=== PATIENT | female | born 1940 | race Caucasian/White ===

== ENCOUNTER 2016-11-11 17:30 | Inpatient (IN) | payer MEDICARE, OTHER ==
[~2016-11-11] VITALS: Ht 160 cm; Wt 66.3 kg
[2016-11-11] MEDS ORDERED: SODIUM CHLORIDE 0.9% 1,000 ML IV ONE (18:13)
[2016-11-11] MEDS ORDERED: ALBUTEROL/IPRATROPIUM 2.5MG/0.5MG, 3 ML ONE ×2 (18:28→21:27)
[2016-11-11] MEDS ORDERED: ALBUTEROL/IPRATROPIUM 2.5MG/0.5MG, 3 ML NPPB ONE (18:30)
[2016-11-11] MEDS ORDERED: SODIUM CHLORIDE FLUSH 10ML SYR IVF ONE (18:30)
[2016-11-11 18:42] LABS: BLOOD UREA NITROGEN 11 mg/dL (7-18)
[2016-11-11] MEDS ORDERED: VENL100T PO (18:51)
[2016-11-11] MEDS ORDERED: PRIM50TA PO (18:51)
[2016-11-11] MEDS ORDERED: DONE5TAB14 PO (18:51)
[2016-11-11] MEDS ORDERED: CLON-364 PO (18:51)
[2016-11-11] MEDS ORDERED: LIDO700A5 TD (18:51)
[2016-11-11] MEDS ORDERED: TRAZ150T68 PO (18:51)
[2016-11-11] MEDS ORDERED: ALBU1.25 NEB (18:51)
[2016-11-11] MEDS ORDERED: HYDR1TAB16 PO (18:51)
[2016-11-11] MEDS ORDERED: RISP0.253 PO (18:51)
[2016-11-11] MEDS ORDERED: PRAV40TA2 PO (18:51)
[2016-11-11] MEDS ORDERED: POTA10CA PO (18:51)
[2016-11-11] MEDS ORDERED: OMEP-110 PO (18:51)
[2016-11-11] MEDS ORDERED: DILT60CA PO (18:51)
[2016-11-11] MEDS ORDERED: FURO80TA3 PO (18:51)
[2016-11-11] MEDS ORDERED: FLUT1DIS3 INH (18:51)
[2016-11-11] MEDS ORDERED: PLEASE ENTER ALLERGIES MC SCH ×2 (19:58)
[2016-11-11] MEDS ORDERED: methylPREDNISolone SOD SUCC 125 MG/2 ML IVP ONE (21:00)
[2016-11-11] MEDS ORDERED: methylPREDNISolone SOD SUCC 125 MG/2 ML ONE (21:12)
[2016-11-11] MEDS ORDERED: ALBUTEROL SULFATE 2.5 MG/3 ML NPPB ONE (21:30)
[2016-11-11] MEDS ORDERED: SODIUM CHLORIDE FLUSH 10ML SYR IVF PRN (22:00)
[2016-11-11] MEDS ORDERED: GUAIFENESIN/DM 200-20MG, 10ML UDC PO PRN (22:00)
[2016-11-11] MEDS ORDERED: ONDANSETRON ODT 4 MG PO PRN (22:00)
[2016-11-11] MEDS ORDERED: ENALAPRILAT 1.25 MG/ML, 2ML IVPush PRN (22:00)
[2016-11-11] MEDS ORDERED: BISACODYL 10 MG SUPP PR PRN (22:00)
[2016-11-11] MEDS ORDERED: POLYETHYLENE GLYCOL 17 GM PACKET PO PRN (22:00)
[2016-11-11] MEDS ORDERED: DOCUSATE 100 MG CAPSULE PO PRN (22:00)
[2016-11-11 22:46] VITALS: BP 118/68
[2016-11-11] MEDS: AZITHROMYCIN 500 MG in SODIUM CHLORIDE 0.9% 250 ML IV SCH (23:45)
[2016-11-11] MEDS: DILTIAZEM 30 MG TABLET PO SCH (23:45)
[2016-11-11] MEDS: TRAZODONE 50MG TABLET PO PRN (23:45)
[2016-11-11] MEDS: methylPREDNISolone SOD SUCC 125 MG/2 ML IVPush SCH (23:46)
[2016-11-11] MEDS: ENOXAPARIN 40 MG/0.4 ML SQ SCH (23:46)
[2016-11-12] MEDS: ALBUTEROL/IPRATROPIUM 2.5MG/0.5MG, 3 ML NPPB PRN (01:26)
[2016-11-12 01:37] VITALS: BP 111/68
[2016-11-12] MEDS: methylPREDNISolone SOD SUCC 125 MG/2 ML IVPush SCH (04:48)
[2016-11-12 05:58] LABS: ASPARTATE AMINO TRANSFERASE 22 U/L (15-37); BLOOD UREA NITROGEN 10 mg/dL (7-18)
[2016-11-12] MEDS: HYDROcodone/APAP 10/325 MG TABLET PO PRN ×3 (06:00→19:58)
[2016-11-12] MEDS: ALBUTEROL/IPRATROPIUM 2.5MG/0.5MG, 3 ML NPPB SCH ×6 (06:07→23:45)
[2016-11-12 07:50] VITALS: BP 92/46
[2016-11-12 07:56] VITALS: BP 169/86
[2016-11-12] MEDS: VENLAFAXINE 75MG TABLET PO SCH (09:26)
[2016-11-12] MEDS: DILTIAZEM 30 MG TABLET PO SCH ×3 (09:26→19:57)
[2016-11-12] MEDS: PRIMIDONE 50 MG TABLET PO SCH ×2 (09:27→19:58)
[2016-11-12] MEDS: RISPERIDONE 0.5 MG TABLET PO SCH ×2 (09:27→19:57)
[2016-11-12] MEDS: OMEPRAZOLE 20 MG CAPSULE.DR PO SCH ×2 (09:27→19:57)
[2016-11-12] MEDS: FUROSEMIDE 80 MG TABLET PO SCH (09:28)
[2016-11-12] MEDS: DONEPEZIL 5 MG TABLET PO SCH (09:28)
[2016-11-12 14:12] VITALS: BP 132/74
[2016-11-12 19:51] VITALS: BP 117/72
[2016-11-12] MEDS: TRAZODONE 50MG TABLET PO PRN (19:57)
[2016-11-12] MEDS ORDERED: ACETAMINOPHEN 325 MG TABLET PO ONE (20:30)
[2016-11-12] MEDS ORDERED: PRAVASTATIN 40 MG TABLET PO SCH (21:00)
[2016-11-12] MEDS ORDERED: CALCIUM CARBONATE 500 MG TAB.CHEW PO SCH (21:00)
[2016-11-13] MEDS: AZITHROMYCIN 500 MG in SODIUM CHLORIDE 0.9% 250 ML IV SCH ×2 (00:01)
[2016-11-13] MEDS: ENOXAPARIN 40 MG/0.4 ML SQ SCH ×2 (00:02)
[2016-11-13] MEDS ORDERED: CALCIUM CARBONATE 500 MG TAB.CHEW PO PRN (01:00)
[2016-11-13 01:52] VITALS: BP 106/62
[2016-11-13] MEDS: ALBUTEROL/IPRATROPIUM 2.5MG/0.5MG, 3 ML NPPB PRN (01:58)
[2016-11-13] MEDS: ALBUTEROL/IPRATROPIUM 2.5MG/0.5MG, 3 ML NPPB SCH ×4 (07:40→18:00)
[2016-11-13 08:10] VITALS: BP 121/67
[2016-11-13] MEDS: DILTIAZEM 30 MG TABLET PO SCH ×2 (08:14→17:26)
[2016-11-13] MEDS: OMEPRAZOLE 20 MG CAPSULE.DR PO SCH (08:14)
[2016-11-13] MEDS: FUROSEMIDE 80 MG TABLET PO SCH (08:14)
[2016-11-13] MEDS: RISPERIDONE 0.5 MG TABLET PO SCH (08:14)
[2016-11-13] MEDS: VENLAFAXINE 75MG TABLET PO SCH (08:15)
[2016-11-13] MEDS: DONEPEZIL 5 MG TABLET PO SCH (08:15)
[2016-11-13] MEDS: PRIMIDONE 50 MG TABLET PO SCH (08:16)
[2016-11-13] MEDS ORDERED: PRED20TA PO (13:39)
[2016-11-13] MEDS: HYDROcodone/APAP 10/325 MG TABLET PO PRN (14:17)
== END 2016-11-13 18:15 | disposition home or self-care (01) | DRG 189 ==
LOC: ED 21:00 → EDIP 21:39 → 3NW 22:19
PROVIDERS: ADMIT Internal Medicine; ATTEND Internal Medicine
DX: J96.01 Acute respiratory failure with hypoxia (principal); J44.1 Chronic obstructive pulmonary disease with (acute) exacerbation; I50.32 Chronic diastolic (congestive) heart failure; E87.1 Hypo-osmolality and hyponatremia; K44.9 Diaphragmatic hernia without obstruction or gangrene; E88.09 Other disorders of plasma-protein metabolism, not elsewhere classified; F32.9 Major depressive disorder, single episode, unspecified; G31.84 Mild cognitive impairment of uncertain or unknown etiology; I25.10 Atherosclerotic heart disease of native coronary artery without angina pectoris; G89.29 Other chronic pain; M54.9 Dorsalgia, unspecified; M25.559 Pain in unspecified hip; K21.9 Gastro-esophageal reflux disease without esophagitis; Z80.0 Family history of malignant neoplasm of digestive organs; Z87.01 Personal history of pneumonia (recurrent); Z83.3 Family history of diabetes mellitus; Z87.891 Personal history of nicotine dependence; Z95.5 Presence of coronary angioplasty implant and graft; Z90.710 Acquired absence of both cervix and uterus; Z98.51 Tubal ligation status; Z88.8 Allergy status to other drugs, medicaments and biological substances; Z79.899 Other long term (current) drug therapy; Z99.81 Dependence on supplemental oxygen
CPT/HCPCS: 36415; 71010; 80048; 80053; 82040; 83605; 83735; 84439; 84443; 85025; 93005; 94640; 96374; 96375; J0456; J1650; J7620; J2930; J7030; J7050; J7512

== ENCOUNTER 2017-07-20 01:53 | Inpatient (IN) | payer MEDICARE, OTHER ==
[~2017-07-20] VITALS: Ht 160 cm; Wt 67.0 kg
[~2017-07-20 01:53] MED LIST: ALBU1.25 NEB; CLON-364 PO; DILT60CA PO; DONE5TAB14 PO; FLUT1DIS3 INH; FURO80TA3 PO; HYDR1TAB16 PO; LIDO700A5 TD; OMEP-110 PO; POTA10CA PO; PRAV40TA2 PO; PRED20TA PO; PRIM50TA PO; RISP0.253 PO; TRAZ150T62 PO; VENL100T PO
[2017-07-20] MEDS ORDERED: SPIR25TA3 PO (02:26)
[2017-07-20] MEDS ORDERED: MELO7.5T31 PO (02:26)
[2017-07-20] MEDS ORDERED: THEO400T2 PO (02:26)
[2017-07-20] MEDS ORDERED: MORP-52 PO (02:26)
[2017-07-20 02:46] LABS: RAPID INFLUENZA A Negative (Negative); RAPID INFLUENZA B Negative (Negative)
[2017-07-20 02:55] LABS: BASOPHILS # (AUTO) 0.01 x10^3/uL (0-0.1); BASOPHILS % (AUTO) 0 % (0-1); EOSINOPHILS # (AUTO) 0.05 x10^3/uL (0-0.4); EOSINOPHILS % (AUTO) 1 % (1-7); LYMPHOCYTES # (AUTO) 0.65 x10^3/uL (1-3.4); LYMPHOCYTES % (AUTO) 8 % (22-44); MD NO; MEAN CORPUSCULAR HEMOGLOBIN 26.1 pg (27.0-34.8); MEAN CORPUSCULAR HGB CONC 31.9 g/dL (32.4-35.8); MEAN CORPUSCULAR VOLUME 81.8 fL (80-100); MONOCYTES # (AUTO) 0.56 x10^3/uL (0.2-0.8); MONOCYTES % (AUTO) 7 % (2-9); NEUTROPHILS # (AUTO) 7.18 x10^3/uL (1.8-6.8); NEUTROPHILS % (AUTO) 85 % (42-75); PLATELET COUNT 246 x10^3/uL (130-400); RED CELL DISTRIBUTION WIDTH 17.2 % (9.6-15.2)
[2017-07-20 03:08] LABS: ANION GAP 6 mmol/L (5-15); CALCIUM 8.8 mg/dL (8.5-10.1); CHLORIDE 104 mmol/L (98-107)
[2017-07-20 03:13] LABS: BILIRUBIN,TOTAL 0.3 mg/dL (0.2-1.0); CREATININE 0.68 mg/dL (0.55-1.02)
[2017-07-20 03:14] LABS: ALANINE AMINOTRANSFERASE 92 U/L (12-78); ALKALINE PHOSPHATASE 188 U/L (45-117)
[2017-07-20 03:24] LABS: TROPONIN I 0.401 ng/mL (0.000-0.045)
[2017-07-20] MEDS ORDERED: ASPIRIN 81 MG TABLET CHEW ONE (03:33)
[2017-07-20] MEDS ORDERED: ASPIRIN 81 MG TABLET CHEW PO ONE (04:00)
[2017-07-20] MEDS ORDERED: MORPHINE SULFATE 4 MG/ML, 1ML IVPush PRN (04:00)
[2017-07-20] MEDS ORDERED: ONDANSETRON 2MG/ML, 2ML IVPush PRN ×2 (04:00→05:30)
[2017-07-20] MEDS ORDERED: ACETAMINOPHEN 325 MG TABLET ONE (04:23)
[2017-07-20] MEDS ORDERED: ACETAMINOPHEN 325 MG TABLET PO ONE (04:30)
[2017-07-20] MEDS ORDERED: SODIUM CHLORIDE 0.9% 1,000 ML IV SCH (05:29)
[2017-07-20] MEDS ORDERED: ENOXAPARIN 40 MG/0.4 ML SQ SCH (05:30)
[2017-07-20] MEDS ORDERED: GUAIFENESIN/DM 200-20MG, 10ML UDC PO PRN (05:30)
[2017-07-20] MEDS ORDERED: TEMAZEPAM 15 MG CAPSULE PO PRN (05:30)
[2017-07-20 05:35] VITALS: BP 110/65
[2017-07-20] MEDS ORDERED: ALBUTEROL/IPRATROPIUM 2.5MG/0.5MG, 3 ML NPPB PRN (07:00)
[2017-07-20 07:18] VITALS: BP 106/65
[2017-07-20] MEDS: CARVEDILOL 3.125 MG TABLET PO SCH ×2 (07:30→17:08)
[2017-07-20] MEDS: ALBUTEROL/IPRATROPIUM 2.5MG/0.5MG, 3 ML NPPB SCH ×3 (07:37→20:31)
[2017-07-20] MEDS: RISPERIDONE 0.5 MG TABLET PO SCH ×2 (09:00→20:45)
[2017-07-20] MEDS: PRIMIDONE 50 MG TABLET PO SCH ×2 (09:00→20:45)
[2017-07-20] MEDS: SODIUM CHLORIDE 0.9% 1,000 ML IV SCH (10:06)
[2017-07-20] MEDS: OMEPRAZOLE 20 MG CAPSULE.DR PO SCH ×2 (12:14→20:44)
[2017-07-20] MEDS: ACETAMINOPHEN 325 MG TABLET PO PRN ×2 (12:15→17:08)
[2017-07-20 12:42] VITALS: BP 122/71
[2017-07-20 15:39] VITALS: BP 128/67
[2017-07-20] MEDS: ASPIRIN 325 MG TABLET EC PO SCH (15:40)
[2017-07-20] MEDS: VENLAFAXINE 75 MG CAP ER PO SCH (15:41)
[2017-07-20] MEDS: ENOXAPARIN 60 MG/0.6 ML SQ SCH (15:42)
[2017-07-20 17:46] LABS: CHOL/HDL RATIO 2.1; LDL/HDL RATIO 0.9 (0.5-3.0)
[2017-07-20 18:42] VITALS: BP 123/72
[2017-07-20] MEDS: TRAZODONE 100MG TABLET PO SCH (20:44)
[2017-07-20] MEDS: PRAVASTATIN 40 MG TABLET PO SCH (20:44)
[2017-07-20] MEDS: DONEPEZIL 5 MG TABLET PO SCH (20:44)
[2017-07-20 23:58] VITALS: BP 129/72
[2017-07-21] MEDS: SODIUM CHLORIDE 0.9% 1,000 ML IV SCH ×2 (00:05→13:24)
[2017-07-21 04:25] VITALS: BP 122/49
[2017-07-21] MEDS: ENOXAPARIN 60 MG/0.6 ML SQ SCH ×3 (04:27→23:14)
[2017-07-21] MEDS: CARVEDILOL 3.125 MG TABLET PO SCH ×2 (04:28→17:03)
[2017-07-21] MEDS: ASPIRIN 325 MG TABLET EC PO SCH (04:28)
[2017-07-21] MEDS: ACETAMINOPHEN 325 MG TABLET PO PRN ×2 (04:28→23:20)
[2017-07-21] MEDS ORDERED: SODIUM CHLORIDE 0.9% 1,000 ML IV SCH (05:29)
[2017-07-21 06:22] LABS: BASOPHILS # (AUTO) 0.03 x10^3/uL (0-0.1); BASOPHILS % (AUTO) 1 % (0-1); EOSINOPHILS % (AUTO) 0 % (1-7); LYMPHOCYTES # (AUTO) 1.48 x10^3/uL (1-3.4); LYMPHOCYTES % (AUTO) 29 % (22-44); MD NO; MEAN CORPUSCULAR HEMOGLOBIN 26.2 pg (27.0-34.8); MEAN CORPUSCULAR HGB CONC 32.1 g/dL (32.4-35.8); MEAN CORPUSCULAR VOLUME 81.5 fL (80-100); MEAN PLATELET VOLUME 9.3 fL (7.4-10.4); MONOCYTES # (AUTO) 0.73 x10^3/uL (0.2-0.8); MONOCYTES % (AUTO) 14 % (2-9); NEUTROPHILS # (AUTO) 2.86 x10^3/uL (1.8-6.8); NEUTROPHILS % (AUTO) 56 % (42-75); PLATELET COUNT 230 x10^3/uL (130-400); RED BLOOD COUNT 3.98 x10^6/uL (3.82-5.3); RED CELL DISTRIBUTION WIDTH 17.1 % (9.6-15.2)
[2017-07-21 06:31] LABS: CHLORIDE 110 mmol/L (98-107)
[2017-07-21 06:32] LABS: ANION GAP 5 mmol/L (5-15); CALCIUM 8.2 mg/dL (8.5-10.1); CREATININE 0.42 mg/dL (0.55-1.02)
[2017-07-21] MEDS: ALBUTEROL/IPRATROPIUM 2.5MG/0.5MG, 3 ML NPPB SCH ×3 (06:36→19:12)
[2017-07-21 07:43] VITALS: BP 119/72
[2017-07-21] MEDS: OMEPRAZOLE 20 MG CAPSULE.DR PO SCH ×2 (09:15→20:08)
[2017-07-21] MEDS: RISPERIDONE 0.5 MG TABLET PO SCH ×2 (09:16→20:08)
[2017-07-21] MEDS: VENLAFAXINE 75 MG CAP ER PO SCH (09:16)
[2017-07-21] MEDS: PRIMIDONE 50 MG TABLET PO SCH ×2 (09:17→20:09)
[2017-07-21] MEDS ORDERED: HYDR-3307 PO (09:40)
[2017-07-21] MEDS: LISINOPRIL 5 MG TABLET PO SCH (11:03)
[2017-07-21] MEDS: CLOPIDOGREL 75 MG TABLET PO SCH (11:03)
[2017-07-21 14:17] VITALS: BP 132/72
[2017-07-21] MEDS: HYDROcodone/APAP 10/325 MG TABLET PO PRN ×2 (14:50→20:09)
[2017-07-21] MEDS ORDERED: GUAIFENESIN 100 MG/5 ML, 10ML UDC PO PRN (17:00)
[2017-07-21 19:19] VITALS: BP 127/74
[2017-07-21] MEDS: DONEPEZIL 5 MG TABLET PO SCH (20:08)
[2017-07-21] MEDS: PRAVASTATIN 40 MG TABLET PO SCH (20:08)
[2017-07-21] MEDS: TRAZODONE 100MG TABLET PO SCH (23:14)
[2017-07-22 01:27] VITALS: BP 115/69
[2017-07-22] MEDS: SODIUM CHLORIDE 0.9% 1,000 ML IV SCH (02:40)
[2017-07-22 05:25] VITALS: BP 112/63
[2017-07-22] MEDS: ASPIRIN 325 MG TABLET EC PO SCH (05:27)
[2017-07-22] MEDS: CARVEDILOL 3.125 MG TABLET PO SCH (05:28)
[2017-07-22 05:30] LABS: BASOPHILS % (AUTO) 2 % (0-1); EOSINOPHILS # (AUTO) 0.05 x10^3/uL (0-0.4); EOSINOPHILS % (AUTO) 1 % (1-7); LYMPHOCYTES # (AUTO) 2.51 x10^3/uL (1-3.4); LYMPHOCYTES % (AUTO) 42 % (22-44); MD NO; MEAN CORPUSCULAR HGB CONC 33.1 g/dL (32.4-35.8); MEAN CORPUSCULAR VOLUME 81.7 fL (80-100); MEAN PLATELET VOLUME 9.3 fL (7.4-10.4); MONOCYTES # (AUTO) 0.59 x10^3/uL (0.2-0.8); MONOCYTES % (AUTO) 10 % (2-9); NEUTROPHILS # (AUTO) 2.77 x10^3/uL (1.8-6.8); NEUTROPHILS % (AUTO) 46 % (42-75); PLATELET COUNT 226 x10^3/uL (130-400); RED BLOOD COUNT 3.67 x10^6/uL (3.82-5.3); RED CELL DISTRIBUTION WIDTH 16.8 % (9.6-15.2)
[2017-07-22 05:41] LABS: CHLORIDE 112 mmol/L (98-107)
[2017-07-22 05:54] LABS: ALANINE AMINOTRANSFERASE 42 U/L (12-78); ALBUMIN 2.5 g/dL (3.4-5.0); ALKALINE PHOSPHATASE 116 U/L (45-117); ANION GAP 6 mmol/L (5-15); BILIRUBIN,TOTAL 0.3 mg/dL (0.2-1.0); CALCIUM 7.9 mg/dL (8.5-10.1); CREATININE 0.42 mg/dL (0.55-1.02); TOTAL PROTEIN 5.6 g/dL (6.4-8.2)
[2017-07-22] MEDS ORDERED: ALBUTEROL/IPRATROPIUM 2.5MG/0.5MG, 3 ML ONE (06:32)
[2017-07-22] MEDS: ALBUTEROL/IPRATROPIUM 2.5MG/0.5MG, 3 ML NPPB SCH ×2 (06:37→13:45)
[2017-07-22 06:59] VITALS: BP 110/68
[2017-07-22] MEDS: RISPERIDONE 0.5 MG TABLET PO SCH (08:15)
[2017-07-22] MEDS: CLOPIDOGREL 75 MG TABLET PO SCH (08:15)
[2017-07-22] MEDS: PRIMIDONE 50 MG TABLET PO SCH (08:15)
[2017-07-22] MEDS: ACETAMINOPHEN 325 MG TABLET PO PRN (08:15)
[2017-07-22] MEDS: OMEPRAZOLE 20 MG CAPSULE.DR PO SCH (08:15)
[2017-07-22] MEDS: VENLAFAXINE 75 MG CAP ER PO SCH (08:15)
[2017-07-22] MEDS: LISINOPRIL 5 MG TABLET PO SCH (08:15)
[2017-07-22] MEDS ORDERED: REGADENOSON 0.4 MG/5 ML SYRINGE ONE (08:42)
[2017-07-22] MEDS: ENOXAPARIN 60 MG/0.6 ML SQ SCH (11:04)
[2017-07-22] MEDS: HYDROcodone/APAP 10/325 MG TABLET PO PRN (11:08)
[2017-07-22 13:53] VITALS: BP 122/69
[2017-07-22] MEDS ORDERED: GUAI100L11 PO (15:16)
[2017-07-22] MEDS ORDERED: SODI44SP NAS (15:16)
[2017-07-22] MEDS ORDERED: CLOP75TA PO (15:16)
[2017-07-22] MEDS ORDERED: ASPI-621 PO (15:16)
[2017-07-22] MEDS ORDERED: PRED20TA PO (15:16)
[2017-07-22] MEDS ORDERED: FLUT16SP NAS (15:16)
[2017-07-22] MEDS ORDERED: PANT40TA3 PO (15:16)
[2017-07-22] MEDS ORDERED: CARV3.1212 PO (15:16)
[2017-07-22] MEDS ORDERED: AMOX1TAB12 PO (15:16)
[2017-07-22] MEDS ORDERED: LISI5TAB7 PO (15:16)
[2017-07-22] MEDS ORDERED: AMOXICILLIN/CLAV 875-125MG TABLET PO SCH (21:00)
[2017-07-22] MEDS ORDERED: FLUTICASONE NASAL SPRAY 16GM NAS SCH (21:00)
[2017-07-22] MEDS ORDERED: SODIUM CHLORIDE NASAL SPRAY 45ML BOTTLE NAS SCH (21:00)
[2017-07-23] MEDS ORDERED: ASPIRIN 81 MG TABLET EC PO SCH (06:00)
[2017-07-23] MEDS ORDERED: ENOXAPARIN 40 MG/0.4 ML SQ SCH (08:00)
== END 2017-07-22 16:15 | disposition home or self-care (01) | DRG 280 ==
LOC: ED 04:03 → EDIP 04:10 → 5SO 05:27 → DCLOUNGE 07-22 15:53
PROVIDERS: ADMIT Internal Medicine; ATTEND Internal Medicine
DX: I21.4 Non-ST elevation (NSTEMI) myocardial infarction (principal); J96.00 Acute respiratory failure, unspecified whether with hypoxia or hypercapnia; E44.1 Mild protein-calorie malnutrition; I50.32 Chronic diastolic (congestive) heart failure; J44.1 Chronic obstructive pulmonary disease with (acute) exacerbation; I11.0 Hypertensive heart disease with heart failure; D64.9 Anemia, unspecified; G30.9 Alzheimer's disease, unspecified; F02.80 Dementia in other diseases classified elsewhere, unspecified severity, without behavioral disturbance, psychotic disturbance, mood disturbance, and anxiety; Z66 Do not resuscitate; K21.9 Gastro-esophageal reflux disease without esophagitis; I25.10 Atherosclerotic heart disease of native coronary artery without angina pectoris; M19.90 Unspecified osteoarthritis, unspecified site; F32.9 Major depressive disorder, single episode, unspecified; Z68.26 Body mass index [BMI] 26.0-26.9, adult; Z90.710 Acquired absence of both cervix and uterus; Z87.891 Personal history of nicotine dependence; Z88.8 Allergy status to other drugs, medicaments and biological substances; Z79.899 Other long term (current) drug therapy; Z79.82 Long term (current) use of aspirin; J01.90 Acute sinusitis, unspecified
CPT/HCPCS: 36415; 71045; 78452; 80048; 80053; 80061; 83735; 83880; 84484; 85025; 87400; 93005; 93017; 93306; 94640; 99285; J1650; J2785; J7620; A9502; C9898; J7030; J7512

== ENCOUNTER 2017-12-13 03:12 | Inpatient (IN) | payer MEDICARE, OTHER ==
[~2017-12-13] VITALS: Ht 162.6 cm; Wt 61.4 kg
[~2017-12-13 03:12] MED LIST changes: +AMOX1TAB12 PO; +ASPI-621 PO; +CARV3.1212 PO; +CLOP75TA PO; +FLUT16SP NAS; +GUAI100L11 PO; +HYDR-3307 PO; +LISI5TAB7 PO; +MELO7.5T31 PO; +MORP-52 PO; +PANT40TA3 PO; +SODI44SP NAS; +SPIR25TA3 PO; +THEO400T2 PO
[2017-12-13] MEDS ORDERED: SODIUM CHLORIDE FLUSH 10ML SYR IVF ONE (03:30)
[2017-12-13 03:41] LABS: MEAN CORPUSCULAR HEMOGLOBIN 27.2 pg (27.0-34.8); MEAN CORPUSCULAR HGB CONC 32.2 g/dL (32.4-35.8); MEAN CORPUSCULAR VOLUME 84.6 fL (80-100); MEAN PLATELET VOLUME 8.5 fL (7.4-10.4); PLATELET COUNT 490 x10^3/uL (130-400); RED BLOOD COUNT 3.92 x10^6/uL (3.82-5.3); RED CELL DISTRIBUTION WIDTH 23.8 % (9.6-15.2)
[2017-12-13 03:50] LABS: ALANINE AMINOTRANSFERASE 17 U/L (12-78); ALBUMIN 2.9 g/dL (3.4-5.0); ANION GAP 10 mmol/L (5-15); CALCIUM 9.4 mg/dL (8.5-10.1); CHLORIDE 110 mmol/L (98-107); CREATININE 0.52 mg/dL (0.55-1.02)
[2017-12-13 03:54] LABS: MICROSCOPIC NOT IND
[2017-12-13 03:55] LABS: ALKALINE PHOSPHATASE 84 U/L (45-117); BILIRUBIN,TOTAL 0.4 mg/dL (0.2-1.0); TOTAL PROTEIN 6.7 g/dL (6.4-8.2); TROPONIN I 0.045 ng/mL (0.000-0.045)
[2017-12-13 03:57] LABS: CULTURE INDICATED? NO
[2017-12-13 04:03] LABS: BASOPHILS # (AUTO) 0.16 x10^3/uL (0-0.1); BASOPHILS % (AUTO) 2 % (0-1); EOSINOPHILS # (AUTO) 0.21 x10^3/uL (0-0.4); EOSINOPHILS % (AUTO) 2 % (1-7); LYMPHOCYTES # (AUTO) 1.14 x10^3/uL (1-3.4); LYMPHOCYTES % (AUTO) 13 % (22-44); MD MORPH REVIEW ONLY; MONOCYTES # (AUTO) 0.82 x10^3/uL (0.2-0.8); MONOCYTES % (AUTO) 9 % (2-9); NEUTROPHILS % (AUTO) 75 % (42-75)
[2017-12-13 04:04] LABS: ANISOCYTOSIS 2+; HYPOCHROMIA 1+; MICROCYTOSIS 1+
[2017-12-13 04:05] LABS: <PLATELET ESTIMATE> INCREASED; <PLT MORPHOLOGY> NORMAL PLT MORPH; OVALOCYTES 1+; TARGET CELLS 1+
[2017-12-13] MEDS ORDERED: D5%-0.45NACL+KCL 20MEQ 1,000 ML IV SCH (04:41)
[2017-12-13] MEDS ORDERED: ACETAMINOPHEN 325 MG TABLET PO PRN (05:00)
[2017-12-13] MEDS ORDERED: POLYETHYLENE GLYCOL 17 GM PACKET PO PRN (05:00)
[2017-12-13] MEDS ORDERED: ONDANSETRON 2MG/ML, 2ML IVPush PRN (05:00)
[2017-12-13] MEDS ORDERED: ALBUTEROL SULFATE 2.5 MG/3 ML NPPB PRN (05:30)
[2017-12-13] MEDS: ASPIRIN 81 MG TABLET EC PO SCH (05:36)
[2017-12-13] MEDS: ENOXAPARIN 40 MG/0.4 ML SQ SCH (05:36)
[2017-12-13] MEDS: CARVEDILOL 3.125 MG TABLET PO SCH ×2 (05:36→16:56)
[2017-12-13 06:45] VITALS: BP 125/70
[2017-12-13] MEDS: SENNA/DOCUSATE TABLET PO SCH (08:57)
[2017-12-13] MEDS: CLOPIDOGREL 75 MG TABLET PO SCH (08:58)
[2017-12-13] MEDS: LISINOPRIL 5 MG TABLET PO SCH (08:58)
[2017-12-13] MEDS: PRIMIDONE 50 MG TABLET PO SCH ×2 (08:58→21:19)
[2017-12-13] MEDS: SPIRONOLACTONE 25 MG TABLET PO SCH (08:58)
[2017-12-13] MEDS: RISPERIDONE 0.5 MG TABLET PO SCH ×2 (08:59→21:19)
[2017-12-13] MEDS: FLUTICASONE NASAL SPRAY 16GM NAS SCH ×2 (09:09→21:00)
[2017-12-13 12:25] VITALS: BP 149/76
[2017-12-13 18:36] VITALS: BP 130/70
[2017-12-14 02:00] VITALS: BP 111/73
[2017-12-14] MEDS: ENOXAPARIN 40 MG/0.4 ML SQ SCH (04:37)
[2017-12-14 05:05] LABS: ANION GAP 6 mmol/L (5-15); CALCIUM 8.6 mg/dL (8.5-10.1); CHLORIDE 110 mmol/L (98-107); CREATININE 0.44 mg/dL (0.55-1.02)
[2017-12-14] MEDS: CARVEDILOL 3.125 MG TABLET PO SCH ×2 (05:32→17:36)
[2017-12-14] MEDS: ASPIRIN 81 MG TABLET EC PO SCH (05:32)
[2017-12-14 06:45] VITALS: BP 94/57
[2017-12-14 09:51] VITALS: BP 174/91
[2017-12-14] MEDS: FLUTICASONE NASAL SPRAY 16GM NAS SCH ×2 (10:02→20:20)
[2017-12-14] MEDS: PRIMIDONE 50 MG TABLET PO SCH ×2 (10:03→20:17)
[2017-12-14] MEDS: SPIRONOLACTONE 25 MG TABLET PO SCH (10:03)
[2017-12-14] MEDS: CLOPIDOGREL 75 MG TABLET PO SCH (10:03)
[2017-12-14] MEDS: LISINOPRIL 5 MG TABLET PO SCH (10:04)
[2017-12-14] MEDS: RISPERIDONE 0.5 MG TABLET PO SCH ×2 (10:05→20:18)
[2017-12-14] MEDS: SENNA/DOCUSATE TABLET PO SCH (10:05)
[2017-12-14 12:25] VITALS: BP 104/62
[2017-12-14] MEDS: POTASSIUM CHLORIDE 20 MEQ PACKET PO SCH (17:36)
[2017-12-14 18:43] VITALS: BP 104/59
[2017-12-15 00:36] VITALS: BP 108/63
[2017-12-15 05:16] LABS: CHLORIDE 109 mmol/L (98-107)
[2017-12-15 05:21] LABS: ANION GAP 6 mmol/L (5-15); CALCIUM 8.2 mg/dL (8.5-10.1); CREATININE 0.34 mg/dL (0.55-1.02)
[2017-12-15] MEDS: ENOXAPARIN 40 MG/0.4 ML SQ SCH (05:34)
[2017-12-15] MEDS: ASPIRIN 81 MG TABLET EC PO SCH (05:34)
[2017-12-15] MEDS: CARVEDILOL 3.125 MG TABLET PO SCH ×2 (05:34→18:00)
[2017-12-15 06:38] VITALS: BP 105/60
[2017-12-15] MEDS: POTASSIUM CHLORIDE 20 MEQ PACKET PO SCH ×2 (08:00→17:00)
[2017-12-15] MEDS: FLUTICASONE NASAL SPRAY 16GM NAS SCH ×2 (09:00→20:13)
[2017-12-15] MEDS: SPIRONOLACTONE 25 MG TABLET PO SCH (09:29)
[2017-12-15] MEDS: CLOPIDOGREL 75 MG TABLET PO SCH (09:29)
[2017-12-15] MEDS: LISINOPRIL 5 MG TABLET PO SCH (09:30)
[2017-12-15] MEDS: RISPERIDONE 0.5 MG TABLET PO SCH ×2 (09:30→20:12)
[2017-12-15] MEDS: PRIMIDONE 50 MG TABLET PO SCH ×2 (09:31→20:11)
[2017-12-15] MEDS: SENNA/DOCUSATE TABLET PO SCH (09:31)
[2017-12-15 12:25] VITALS: BP 107/64
[2017-12-15] MEDS ORDERED: MAALOX/HYOSCYAMINE/LIDOCAINE 45 ML BTL PO ONE (14:30)
[2017-12-15 19:34] VITALS: BP 102/63
[2017-12-16 01:07] VITALS: BP 114/67
[2017-12-16 05:51] VITALS: BP 153/84
[2017-12-16] MEDS: ASPIRIN 81 MG TABLET EC PO SCH (05:53)
[2017-12-16] MEDS: ENOXAPARIN 40 MG/0.4 ML SQ SCH (05:53)
[2017-12-16] MEDS: CARVEDILOL 3.125 MG TABLET PO SCH ×2 (05:53→18:00)
[2017-12-16] MEDS: DOCUSATE 100 MG CAPSULE PO PRN (05:59)
[2017-12-16 07:00] VITALS: BP 114/67
[2017-12-16] MEDS: POTASSIUM CHLORIDE 20 MEQ PACKET PO SCH ×2 (08:38→17:00)
[2017-12-16] MEDS: RISPERIDONE 0.5 MG TABLET PO SCH (08:38)
[2017-12-16] MEDS: PRIMIDONE 50 MG TABLET PO SCH ×2 (08:39→20:29)
[2017-12-16] MEDS: SPIRONOLACTONE 25 MG TABLET PO SCH (08:39)
[2017-12-16] MEDS: CLOPIDOGREL 75 MG TABLET PO SCH (08:40)
[2017-12-16] MEDS: SENNA/DOCUSATE TABLET PO SCH (08:40)
[2017-12-16] MEDS: LISINOPRIL 5 MG TABLET PO SCH (08:40)
[2017-12-16] MEDS: FLUTICASONE NASAL SPRAY 16GM NAS SCH ×2 (08:44→20:29)
[2017-12-16] MEDS ORDERED: CITALOPRAM 20 MG TABLET PO SCH (09:00)
[2017-12-16 13:07] VITALS: BP 118/76
[2017-12-16 19:09] VITALS: BP 144/75
[2017-12-16] MEDS: ALUMINUM/MAG/SIMETHICONE 30 ML UDC PO PRN (19:31)
[2017-12-16] MEDS: QUETIAPINE 25MG TABLET PO SCH (20:29)
[2017-12-16] MEDS ORDERED: MIRTAZAPINE 15 MG TABLET PO SCH (21:00)
[2017-12-16] MEDS: ALBUTEROL/IPRATROPIUM 2.5MG/0.5MG, 3 ML NPPB SCH (21:40)
[2017-12-17 00:11] VITALS: BP 114/60
[2017-12-17] MEDS: ENOXAPARIN 40 MG/0.4 ML SQ SCH (06:10)
[2017-12-17] MEDS: DOCUSATE 100 MG CAPSULE PO PRN (06:10)
[2017-12-17] MEDS: CARVEDILOL 3.125 MG TABLET PO SCH (06:11)
[2017-12-17] MEDS: QUETIAPINE 25MG TABLET PO SCH (06:11)
[2017-12-17] MEDS: ASPIRIN 81 MG TABLET EC PO SCH (06:11)
[2017-12-17] MEDS: ALBUTEROL/IPRATROPIUM 2.5MG/0.5MG, 3 ML NPPB SCH ×2 (07:10→13:30)
[2017-12-17] MEDS: POTASSIUM CHLORIDE 20 MEQ PACKET PO SCH (08:18)
[2017-12-17] MEDS: FLUTICASONE NASAL SPRAY 16GM NAS SCH ×2 (08:18→08:26)
[2017-12-17] MEDS: SENNA/DOCUSATE TABLET PO SCH (08:19)
[2017-12-17] MEDS: PRIMIDONE 50 MG TABLET PO SCH (08:19)
[2017-12-17] MEDS: SPIRONOLACTONE 25 MG TABLET PO SCH (08:20)
[2017-12-17] MEDS: CLOPIDOGREL 75 MG TABLET PO SCH (08:20)
[2017-12-17] MEDS ORDERED: MIRT15TA4 PO (08:21)
[2017-12-17] MEDS: LISINOPRIL 5 MG TABLET PO SCH (08:21)
[2017-12-17] MEDS ORDERED: QUET25TA PO (08:21)
[2017-12-17 08:42] VITALS: BP 149/89
[2017-12-17 12:17] VITALS: BP 115/71
[2017-12-17] MEDS: ALUMINUM/MAG/SIMETHICONE 30 ML UDC PO PRN ×2 (12:38→13:10)
== END 2017-12-17 16:35 | disposition home health service (06) | DRG 640 ==
LOC: ED 03:21 → EDIP 04:11 → 3NE 05:08
PROVIDERS: ADMIT Family Medicine; ATTEND Family Medicine
PROC: 0T9B70Z Drainage of Bladder with Drainage Device, Via Natural or Artificial Opening (ICD-10-PCS; principal; 2017-12-13)
DX: R62.7 Adult failure to thrive (principal); G93.40 Encephalopathy, unspecified; E43 Unspecified severe protein-calorie malnutrition; E87.0 Hyperosmolality and hypernatremia; I50.32 Chronic diastolic (congestive) heart failure; F02.81 Dementia in other diseases classified elsewhere, unspecified severity, with behavioral disturbance; I11.0 Hypertensive heart disease with heart failure; E86.0 Dehydration; Z88.8 Allergy status to other drugs, medicaments and biological substances; Z68.23 Body mass index [BMI] 23.0-23.9, adult; E87.6 Hypokalemia; F32.9 Major depressive disorder, single episode, unspecified; F41.9 Anxiety disorder, unspecified; G30.9 Alzheimer's disease, unspecified; G89.29 Other chronic pain; M54.9 Dorsalgia, unspecified; I25.2 Old myocardial infarction; J44.9 Chronic obstructive pulmonary disease, unspecified; Z79.891 Long term (current) use of opiate analgesic; Z87.891 Personal history of nicotine dependence; Z90.710 Acquired absence of both cervix and uterus
CPT/HCPCS: 36415; 71045; 80048; 80053; 81003; 84484; 85025; 93005; 94640; 96372; 96374; J1650; J2405; J7620; 92522-GN; J3480; J7512